=== PATIENT | female | born 1990 | race Caucasian/White ===

== ENCOUNTER 2020-12-03 17:47 | Emergency (ER) | payer MEDICAID ==
[~2020-12-03] VITALS: Ht 170.2 cm; Wt 54.5 kg
[2020-12-03] MEDS ORDERED: DIPH,PERTUSS(ACELL),TET VAC/PF 0.5 ML SYRINGE. VAX IM ONE (19:00)
[2020-12-03] MEDS ORDERED: BACITRACIN ZINC TOPICAL OINT PACKET. TP ONE (19:00)
[2020-12-03 20:01] LABS: BARBITURATES POS (NEG); BENZODIAZEPINES NEG (NEG); CANNABINOIDS POS (NEG); COCAINE NEG (NEG); METHADONE NEG (NEG); OPIATES NEG (NEG); PHENCYCLIDINE NEG (NEG)
[2020-12-03 20:04] LABS: AMPHETAMINE/METHAMPHETAMINE NEG (NEG); BACTERIA,URINE 0 /HPF (0-FEW); BILIRUBIN,URINE NEG (NEG); CLARITY,URINE HAZY; COLOR,URINE YELLOW; GLUCOSE,URINE NEG (NEG); NITRITE,URINE NEG (NEG); SQUAMOUS EPITHELIAL CELL,UR OCC /LPF; UROBILINOGEN,URINE 0.2 mg/dL (0.2 mg/dL); WBC,URINE RARE /HPF (0-4)
[2020-12-03 20:35] VITALS: BP 120/65
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
[2020-12-03] MEDS ORDERED: HYDROcodone/APAP 7.5/325MG 1 TAB TABLET ONE (21:17)
[2020-12-03] MEDS ORDERED: HYDROcodone/APAP 7.5/325MG 1 TAB TABLET PO ONE (21:30)
== END 2020-12-03 21:25 | disposition home or self-care (01) ==
LOC: ER 17:47 → EEVIPCON 17:47 → ER 21:25
DX: S70.311A Abrasion, right thigh, initial encounter (principal); Z23 Encounter for immunization; Z88.6 Allergy status to analgesic agent; Y04.2XXA Assault by strike against or bumped into by another person, initial encounter; Y93.89 Activity, other specified; Y92.89 Other specified places as the place of occurrence of the external cause; Y99.8 Other external cause status
CPT/HCPCS: 36415; 80307; 81001; 81025; 90471; 90715; 99283